=== PATIENT | male | born 1985 | race Caucasian/White ===

== ENCOUNTER 2017-05-01 22:53 | Emergency (ER) | END 2017-05-02 03:48 | disposition home or self-care (01) ==

== ENCOUNTER 2017-05-02 23:35 | Emergency (ER) | END 2017-05-03 03:21 | disposition home or self-care (01) ==

== ENCOUNTER 2018-06-08 23:59 | Emergency (ER) | payer OTHER ==
[~2018-06-08] VITALS: Ht 167.6 cm; Wt 123.0 kg
[~2018-06-08 23:59] MED LIST: ACET500C5 PO; CYCL10TA7 PO; D-ME118S6 PO; DOXY100T20 PO; ERYT1OIN6 RIGHT EYE; FEXO180T61 PO; HYDR-4011 PO; IBUP-1542 PO; MED4DP PO; NAPR-985 PO; PHEN177S6 MM; TRAM50TA2 PO
[2018-06-09 00:06] VITALS: BP 140/74; PULSE 70; RESP 18; Ht 167.6 cm; Wt 123.0 kg
[2018-06-09] MEDS ORDERED: DIPHTH/TET/ACEL PERTUSS (ADULT) 0.5 ML VIAL IM* ONE (05:00)
[2018-06-09] MEDS ORDERED: CEPH-443 PO (05:25)
--- NOTE | 2018-06-09 05:32 | ERD ---
ER Documentation Chief Complaint Chief Complaint L arm lac HPI Is a 33-year-old stain-slbb-bkjatwug Montenegrin speaking male presents the ED for left forearm laceration sustained at 7:30 PM. 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 He denies any retained foreign bodies in his arm. He sustained a small laceration to his forearm and came here for further evaluation. Denies any increasing pain. Denies any fevers, chills. Denies any numbness, tingling, focal weakness of his left arm. Patient has full range of motion of his wrist and of his fingers. No other injuries reported. Tetanus is not up-to-date. ROS All systems reviewed and are negative except as per history of present illness. Medications Home Meds Active Scripts Cephalexin* (Keflex*) 500 Mg Capsule, 500 MG PO QID for 5 Days, CAP Prov:CRISS CUELLO PA-C 06/09/18 Cyclobenzaprine Hcl* (Cyclobenzaprine Hcl*) 10 Mg Tablet, 10 MG PO TID, #15 TAB Prov:SHRUTHI MCKEE TUBE TESTER 05/03/17 Hydrocodone/Acetaminophen (Velma 5-325 Tablet) 1 Each Tablet, 1 TAB PO Q6H PRN for SEVERE PAIN LEVEL 7-10, #20 TAB Prov:SHRUTHI MCKEE TUBE TESTER 05/03/17 Acetaminophen* (Tylophen*) 500 Mg Capsule, 1 CAP PO Q6H PRN for PAIN AND OR ELEVATED TEMP, #20 CAP Prov:SHRUTHI MCKEE TUBE TESTER 18 Fexofenadine Hcl* (Dasha*) 180 Mg Tablet, 180 MG PO DAILY, #30 TAB Prov:ROSHNIDIMITRYMALKA C 05/02/17 Phenol* (Throat Elgin*) 177 Ml Elgin, 2 SPRAY MM Q2H PRN for SORE THROAT for 5 Days, SPRAY Prov:ROSHNI,MALKA C 05/02/17 Doxycycline Hyclate* (Doxycycline Hyclate*) 100 Mg Tablet.dr, 100 MG PO BID for 10 Days, TAB Prov:ROSHNIMALKA C 05/02/17 Methylprednisolone* (Medrol* DOSE PACK) 4 Mg/Dose-Pack Tab.ds.pk, 4 MG PO . DIRECTED for 6 Days, PACKET Prov:MALKA BARAKAT 05/02/17 Naproxen* (Naprosyn*) 500 Mg Tablet, 500 MG PO BID PRN for PAIN AND/OR INFLAMMATION, #30 TAB Prov:NAHUN CRUZ PA-C 11/03/15 Hydrocodone/Acetaminophen (Velma 5-325 Tablet) 1 Each Tablet, 1 TAB PO Q6H PRN for PAIN, #7 TAB Prov:NAHUN CRUZ PA-C 11/03/15 Tramadol HCl (Tramadol HCl) 50 Mg Tablet, 50 MG PO Q4 PRN for PAIN, #16 TAB Prov:DENIA GROSSMAN MD 08/04/15 Ibuprofen* (Motrin*) 600 Mg Tab, 600 MG PO Q6, #20 TAB Prov:DENIA GROSSMAN MD 08/04/15 Erythromycin (Erythromycin Opth) 3.5 Gm Oint..gm., 1 APPLIC RIGHT EYE QID for 7 Days, EA Prov:ROSANGELA KILPATRICK PA-C 02/17/15 Dextromethorphan Hb-Promethazine Hcl (Promethazine DM Syrup) 180 Ml Syrup, 20 MG PO Q4 PRN for COUGH for 10 Days, OZ Prov:LEIGHRADHA I. TUBE TESTER 11/22/14 Erythromycin (Erythromycin Opth) 3.5 Gm Oint..gm., 1 APPLIC RIGHT EYE QID for 7 Days, EA Prov:LEIGHRADHA I. TUBE TESTER 11/22/14 Allergies Allergies: Coded Allergies: No Known Allergy (Unverified , 11/22/14) PMhx/Soc History of Surgery: Yes (APPY) Anesthesia Reaction: No Hx Neurological Disorder: No Hx Respiratory Disorders: No Hx Cardiac Disorders: No Hx Psychiatric Problems: No Hx Miscellaneous Medical Probl: No Hx Alcohol Use: Yes (SOCIALLY) Hx Substance Use: No Hx Tobacco Use: No Physical Exam Vitals Vital Signs Date Temp Pulse Resp B/P (MAP) Pulse Ox O2 O2 Flow FiO2 Time Delivery Rate 06/09/18 98.0 70 18 140/74 97 00:06 (96) Physical Exam Const: No acute distress Head: Atraumatic Eyes: Normal Conjunctiva ENT: Normal External Ears, Nose and Mouth. Neck: Full range of motion. No meningismus. Resp: Clear to auscultation bilaterally Cardio: Regular rate and rhythm, no murmurs Skin: No petechiae or rashes Back: No midline or flank tenderness Ext: + 2.5 cm U-shaped subcutaneous laceration to left mid medial forearm, minimally gaping. Medial, ulnar, radial nerves intact. Pulses 2+. Motor strength 5 out of 5. Refill less than 2 seconds. Neur: Awake and alert Psych: Normal Mood and Affect Results 24 hrs Current Medications Medications Dose Sig/Susan Start Time Status Last (Trade) Ordered Route PRN Stop Time Admin Dose Reason Admin Diphtheria/ 0.5 ml ONCE ONCE 06/09/18 DC Tetanus/Acell IM* 05:00 Pertussis 06/09/18 05:01 (Adacel) Procedures/MDM PROCEDURES: Laceration Repair by me: Anesthesia: 1% lidocaine locally Location: Left forearm Tendon/Joint/Nerves: No injury Foreign body: None detected after copious irrigation and exploration Technique: Simple Interrupted Sutures, 4-0 prolene x4 Complexity: No subcutaneous sutures/mucosal repair/edge excision Post Closure Length: 2.5 cm ED COURSE: The patient was given tetanus update The medication was well tolerated. The patient remained stable throughout ED course. MEDICAL DECISION MAKING: This is a 33-year-old male presents with a left forearm laceration sustained just prior to arrival. Patient is neurovascularly intact. Laceration was extensively irrigated as above. No foreign body was appreciated. No x-rays were indicated at this time. Laceration was repaired as above, patient tolerated well. Given that laceration was sustained by a piece of metal, will treat with prophylactic antibiotics. Given Rx for Keflex. Patient's bleeding was easily controlled in the department and there is no indication of anemia. No evidence of compartment syndrome, neurologic injury, vascular injury, open joint, tendon laceration, or foreign body. Patient is appropriate for outpatient follow up. 48 hour wound check. Scar minimization instructions given. PRESCRIPTIONS: Keflex SPECIALIST FOLLOW UP RECOMMENDED: None Patient has been advised to follow up with primary care in 1-2 days. Blood Pressure Assessment: Patient's blood pressure was elevated (>120/80) but appears stable without evidence of hypertension emergency or urgency. The patient was counseled about the risks of hypertension and urged to pursue outpatient monitoring and therapy within a week with their primary care physician. Departure Diagnosis: Primary Impression: Laceration Patient Instructions: Laceration, Hand Referrals: COMMUNITY CLINICS YOU HAVE RECEIVED A MEDICAL SCREENING EXAM AND THE RESULTS INDICATE THAT YOU DO NOT HAVE A CONDITION THAT REQUIRES URGENT TREATMENT IN THE EMERGENCY DEPARTMENT. FURTHER EVALUATION AND TREATMENT OF YOUR CONDITION CAN WAIT UNTIL YOU ARE SEEN IN YOUR DOCTORS OFFICE WITHIN THE NEXT 1-2 DAYS. IT IS YOUR RESPONSIBILITY TO MAKE AN APPOINTMENT FOR FOLOW-UP CARE. IF YOU HAVE A PRIMARY DOCTOR --you should call your primary doctor and schedule an appointment IF YOU DO NOT HAVE A PRIMARY DOCTOR YOU CAN CALL OUR PHYSICIAN REFERRAL HOTLINE AT IF YOU CAN NOT AFFORD TO SEE A PHYSICIAN YOU CAN CHOSE FROM THE FOLLOWING [facility] [address] [facility]. [facility] [address] [facility]. [facility] [address] [facility] [address] [facility] [facility] [address] [facility]. [facility] [address] [facility]. [facility] YOU HAVE RECEIVED A MEDICAL SCREENING EXAM AND THE RESULTS INDICATE THAT YOU DO NOT HAVE A CONDITION THAT REQUIRES URGENT TREATMENT IN THE EMERGENCY DEPARTMENT. FURTHER EVALUATION AND TREATMENT OF YOUR CONDITION CAN WAIT UNTIL YOU ARE SEEN IN YOUR DOCTORS OFFICE WITHIN THE NEXT 1-2 DAYS. IT IS YOUR RESPONSIBILITY TO MAKE AN APPOINTMENT FOR FOLOW-UP CARE. IF YOU HAVE A PRIMARY DOCTOR --you should call your primary doctor and schedule and appointment IF YOU DO NOT HAVE A PRIMARY DOCTOR YOU CAN CALL OUR PHYSICIAN REFERRAL HOTLINE AT . IF YOU CAN NOT AFFORD TO SEE A PHYSICIAN YOU CAN CHOSE FROM THE FOLLOWING [facility]: [facility] [address] [place] [address] [facility] [address] [place] [address] [facility] + [facility] [address] [place] [address] [facility] URGENT CARE/SPECIALTIES Additional Instructions: See regular doctor in 2 days for wound recheck. Keep the wound clean and dry for the next 48 hours. Take the antibiotics as prescribed. Sutures can be removed in 10 days from today. Return here for any new or worsening symptoms. CRISS CUELLO PA-C Jun 09, 2018 05:31
[2018-06-09] MEDS ORDERED: BACITRACIN 0.9 GM OINT TOP ONE (06:00)
== END 2018-06-09 06:25 | disposition home or self-care (01) ==
LOC: FTE 23:59
DX: S51.812A Laceration without foreign body of left forearm, initial encounter (principal); W26.8XXA Contact with other sharp object(s), not elsewhere classified, initial encounter; Y92.513 Shop (commercial) as the place of occurrence of the external cause
CPT/HCPCS: 12001; Z7502; Z7610; 90715